=== PATIENT | male | born 2005 | race Caucasian/White ===

== ENCOUNTER 2025-06-24 11:43 | Outpatient (CLI) | payer OTHER, SELFPAY ==
--- NOTE | ~2025-06-24 | US_ITS ---
US scrotum doppler INDICATION: Testicular swelling. TECHNIQUE: Testicular sonogram utilizing grayscale and color Doppler FINDINGS: The testes are normal in size and appearance. No focal lesions are seen. The right testes measures 4.8 x 3.6 x 2.4 cm centimeters, and the left testis measures 5.3 x 2.7 x 2.8 m cm. There is normal vascular flow to both testes. There is a 9 mm left epididymal cyst. There is no varicocele or hydrocele. IMPRESSION: 1. Unremarkable testicular ultrasound. Reviewed, dictated and finalized at location O.
== END 2025-06-24 11:44 | disposition home or self-care (01) ==
LOC: GOSHIMG 11:49
DX: N50.811 Right testicular pain (principal)
CPT/HCPCS: 76870; 93976

== ENCOUNTER 2025-07-08 13:47 | Outpatient (CLI) | payer OTHER, SELFPAY ==
--- NOTE | ~2025-07-08 | CT_ITS ---
CT abdomen pelvis w con Clinical History: Inguinal pain x 2-3 weeks . Comparison: None Technique: Axial images lung bases to symphysis pubis 100 mL Omnipaque 350 Coronal, sagittal reformats CT images acquired with automatic exposure control for dose reduction DLP: 1130 mGy-cm Findings: Lung bases: Clear. Visualized heart and pericardium: Unremarkable. Liver: Steatosis. Enlarged Gallbladder: Unremarkable. Spleen: Enlarged. Pancreas: Unremarkable. Adrenal glands: Unremarkable. Kidneys: Right kidney- No hydronephrosis. No renal stones. Left kidney- No hydronephrosis. No renal stones. Small probable cyst Distal esophagus/stomach: Unremarkable. Small bowel loops: Normal caliber and wall thickness. Colon: Normal caliber and wall thickness. Normal RLQ appendix. Nodes: No enlarged nodes. Peritoneum: No ascites. No free air. Urinary bladder: Unremarkable. Prostate: Unremarkable. Bones: No acute bony abnormality. Soft tissues: Unremarkable. Aorta: No aneurysm or dissection. IVC: Unremarkable. Main portal vein/SMV/splenic vein: Patent. IMPRESSION: 1. No acute abnormality. 2. Findings as above. Reviewed, dictated and finalized at location R. [employer]
== END 2025-07-08 13:48 | disposition home or self-care (01) ==
LOC: MICIMG 13:48
PROVIDERS: Visit Provider Nurse Practitioner Family
DX: K76.0 Fatty (change of) liver, not elsewhere classified (principal); R16.1 Splenomegaly, not elsewhere classified
CPT/HCPCS: 74177; Q9967